=== PATIENT | female | born 1990 | race African-American/Black ===

== ENCOUNTER 2016-09-11 14:19 | Emergency (ER) | payer SELFPAY ==
[~2016-09-11] VITALS: Ht 160 cm; Wt 86.4 kg
[~2016-09-11 14:19] MED LIST: PRENATAL
[2016-09-11 14:30] VITALS: TEMP 98.3
[2016-09-11 16:01] LABS: BASO % 0.3 % (0.0-2.0); EOS # 0.1 (0.0-0.7); EOS % 1.1 % (0-4.0); GRAN # 3.8 (1.4-6.5); GRAN % 50.4 % (42.2-75.2); LYMPH # 3.1 (1.2-3.4); LYMPH % 41.5 % (20.0-51.0); MEAN CELL VOLUME 94 fl (80.0-100.0); MEAN CORPUSCULAR HGB CONC 32 g/dl (33.0-37.0); MEAN PLATELET VOLUME 9.5 fl (7.4-10.4); MONO # 0.5 (0.1-0.6); MONO % 6.4 % (1.7-9.3); PLATELET COUNT 308 K/mm3 (130-400); RED BLOOD COUNT 3.54 M/mm3 (4.10-5.30); REDCELL DISTRIBUTION WIDTH-CV 13.1 % (11.5-14.5); WHITE BLOOD COUNT 7.5 K/mm3 (4.8-10.8)
[2016-09-11 16:03] LABS: HEMATOCRIT 33.1 % (37.0-47.0); HEMOGLOBIN 10.7 g/dl (12.5-16.0); MEAN CORPUSCULAR HEMOGLOBIN 30 pg (27.0-31.0)
[2016-09-11 16:47] VITALS: BP 138/78; PULSE 70
== END 2016-09-11 16:48 | disposition home or self-care (01) ==
LOC: COL.ER 14:19
PROVIDERS: Physician Assistant
DX: O72.2 Delayed and secondary postpartum hemorrhage (principal)

== ENCOUNTER 2018-01-29 09:49 | Outpatient (CLI) | payer SELFPAY ==
[~2018-01-29] VITALS: Ht 162.6 cm; Wt 114.5 kg
[2018-01-29 10:02] VITALS: BP 118/56; PULSE 88; TEMP 98
[2018-01-29 10:30] VITALS: BP 118/56; PULSE 88
== END 2018-01-29 10:50 | disposition home or self-care (01) ==
LOC: LDRO 09:49 → LDR 10:00 → LDRO 10:50
DX: O62.9 Abnormality of forces of labor, unspecified (principal); Z3A.37 37 weeks gestation of pregnancy
CPT/HCPCS: OP

== ENCOUNTER 2018-02-10 07:06 | Inpatient (IN) | payer BC ==
[2018-02-10] VITALS (63 sets, daily range): BP systolic 99–145; BP diastolic 51–76; PULSE 71–100; TEMP 97.2–98.4
[~2018-02-10] VITALS: Ht 162.7 cm; Wt 110.0 kg
[2018-02-10] MEDS ORDERED: PERCOCET 325 MG1 TA2 PO (08:57)
[2018-02-10] MEDS ORDERED: MOTRIN 800800 MG/TAB PO (08:57)
[2018-02-10 09:09] LABS: BASO % 0.1 % (0.0-2.0); EOS # 0.1 (0.0-0.7); GRAN % 63.7 % (42.2-75.2); HEMATOCRIT 28.3 % (37.0-47.0); HEMOGLOBIN 9.2 g/dl (12.5-16.0); LYMPH # 2.1 (1.2-3.4); LYMPH % 27.3 % (20.0-51.0); MEAN CELL VOLUME 90 fl (80.0-100.0); MEAN CORPUSCULAR HEMOGLOBIN 29 pg (27.0-31.0); MEAN CORPUSCULAR HGB CONC 33 g/dl (33.0-37.0); MEAN PLATELET VOLUME 9.3 fl (7.4-10.4); MONO # 0.6 (0.1-0.6); MONO % 7.6 % (1.7-9.3); PLATELET COUNT 264 K/mm3 (130-400); RED BLOOD COUNT 3.15 M/mm3 (4.10-5.30); REDCELL DISTRIBUTION WIDTH-CV 13.5 % (11.5-14.5)
[2018-02-11] VITALS (18 sets, daily range): BP systolic 100–132; BP diastolic 51–94; PULSE 69–96; TEMP 97.4–98.1
[2018-02-11 12:23] LABS: HEMATOCRIT 24.8 % (37.0-47.0)
[2018-02-12 10:00] VITALS: BP 116/55; PULSE 86; TEMP 98.1
[2018-02-12 15:34] VITALS: BP 110/61; PULSE 85; TEMP 98.2
[2018-02-12 20:40] VITALS: BP 117/49; PULSE 85; TEMP 97.6
[2018-02-13 07:30] VITALS: BP 126/64; PULSE 82; TEMP 98.2
[2018-02-13 11:27] VITALS: BP 135/74; PULSE 79; TEMP 99
== END 2018-02-13 13:15 | disposition home or self-care (01) | DRG 788 ==
LOC: LDR 07:06 → OB 02-11 01:45
PROVIDERS: Obstetrics & Gynecology
PROC: 3E033VJ Introduction of Other Hormone into Peripheral Vein, Percutaneous Approach (ICD-10-PCS; 2018-02-10)
PROC: 10907ZC Drainage of Amniotic Fluid, Therapeutic from Products of Conception, Via Natural or Artificial Opening (ICD-10-PCS; 2018-02-10)
PROC: 10D00Z1 Extraction of Products of Conception, Low, Open Approach (ICD-10-PCS; principal; 2018-02-11)
DX: O76 Abnormality in fetal heart rate and rhythm complicating labor and delivery (principal); O36.5930 Maternal care for other known or suspected poor fetal growth, third trimester, not applicable or unspecified; Z3A.39 39 weeks gestation of pregnancy; Z37.0 Single live birth; O99.02 Anemia complicating childbirth; O99.214 Obesity complicating childbirth; O99.824 Streptococcus B carrier state complicating childbirth
CPT/HCPCS: J0690; J1200; J1885; J2270; J2370; J2540; J2590; J3010; J7120

== ENCOUNTER 2019-12-15 07:42 | Emergency (ER) | payer OTHER ==
[~2019-12-15] VITALS: Ht 160 cm; Wt 107.3 kg
[~2019-12-15 07:42] MED LIST changes: +MOTRIN 800800 MG/TAB PO; +PERCOCET 325 MG1 TA2 PO
[2019-12-15 08:36] VITALS: BP 135/90; PULSE 72; TEMP 98.3
[2019-12-15 09:33] LABS: PH 7 (5-8); SQUAMOUS EPITHELIAL 0-2 /hpf; URINE APPEARANCE Clear; URINE BACTERIA Rare /hpf; URINE BILIRUBIN Negative (NEGATIVE); URINE BLOOD Negative (NEGATIVE); URINE COLOR Straw; URINE GLUCOSE Negative (NEGATIVE); URINE KETONE Negative (NEGATIVE); URINE LEUKOCYTE ESTERASE Trace (NEGATIVE); URINE NITRATE Negative (NEGATIVE); URINE PROTEIN(semi-quant) Negative (NEGATIVE); URINE UROBILINOGEN Negative (NEGATIVE)
[2019-12-15 11:12] LABS: COLLECTION METHOD CLEAN CATCH
== END 2019-12-15 09:30 | disposition left against medical advice (07) ==
LOC: COL.ER 07:42
PROVIDERS: Family Medicine
DX: R10.9 Unspecified abdominal pain (principal); Z53.21 Procedure and treatment not carried out due to patient leaving prior to being seen by health care provider